=== PATIENT | female | born 1940 | race Caucasian/White ===

== ENCOUNTER 2019-09-06 10:36 | Inpatient (IN) | payer MEDICARE, OTHER ==
[~2019-09-06] VITALS: Ht 154.9 cm; Wt 43.1 kg
[~2019-09-06 10:36] MED LIST: ASPIR 8181 MG PO; CARBIDOPA-LEVO1 EACH PO
--- NOTE | 2019-09-06 11:30 | Emergency Department Note ---
History of Present Illnes History of Present Illness Chief Complaint: Respiratory History of Present Illness This is a 79 year old female arrived to the ED . With complaints of S hortness of breath or CHF exacerbation. Chief Complaint Comment PATIENT IN FROM HOME; STATES WAS SENT TO [facility] FOR DIRECT ADMISSION FOR CHF BUT THEY DID NOT HAVE ANY BEDS. [facility] DR CASTLE SENT HER HERE FOR ADMISSION. PATIENT STATES SHE HAS HAD INCREASING SHORTNESS OF BREATH FOR THE LAST 2-3 DAYS; PATIENT ALERT AND ORIENTED, RESP EVEN AND NONLABORED, APPEARS IN NO DISTRESS Historian: Patient, Family Member Arrival Mode: Car Onset (how long ago): day(s) Severity: moderate Onset quality: gradual Duration (how long): day(s) Timing of current episode: intermittent Progression: worsening Chronicity: recurrent Relieving factors: none Exacerbating factors: none Past Medical/Family History Physician Review I have reviewed the patient's past medical and family history. Any updates have been documented here. Past Medical History Recent Fever: No Clinical Suspicion of Infectio: No New/Unexplained Change in Ment: No Past Medical History: Hypertension, CHF Other Medical History: PARKINSONS RA Past Surgical History: T&A, Hip Replacement Other Surgery: TONSILLECTOMY Family History Family history of heart diseas: No Other Last Tetanus: OOD Review of Systems Review of Systems Constitutional: Reports no symptoms EENTM: Reports no symptoms Cardiovascular: Reports as per HPI, Reports chest pain, Reports edema Respiratory: Reports as per HPI, Reports dyspnea on exertion Gastrointestinal: Reports no symptoms Genitourinary: Reports no symptoms Musculoskeletal: Reports no symptoms Integumentary: Reports no symptoms Neurological: Reports no symptoms Psychological: Reports no symptoms Endocrine: Reports no symptoms Hematological/Lymphatic: Reports no symptoms Physical Exam Related Data Allergies: Coded Allergies: No Known Allergies (Unverified , 04/18/13) Triage Vital Signs Vital Signs Date Time Temp Pulse Resp B/P (MAP) Pulse Ox O2 Delivery O2 Flow Rate FiO2 09/06/19 10:46 96.5 88 24 139/76 95 Vital signs reviewed: Yes Physical Exam CONSTITUTIONAL Constitutional: Present well-developed, Present cachectic HENT HENT: Present normocephalic, Present atraumatic, Present oropharynx clear/moist, Present nose normal HENT L/R: Present left ext ear normal, Present right ext ear normal EYES Eyes: Reports PERRL, Reports conjunctivae normal NECK Neck: Present ROM normal PULMONARY Pulmonary: Present effort normal, Present breath sounds normal CARDIOVASCULAR Cardiovascular: Present regular rhythm, Present heart sounds normal, Present capillary refill normal, Present normal rate GASTROINTESTINAL Abdominal: Present soft, Present nontender, Present bowel sounds normal GENITOURINARY Genitourinary: Present exam deferred SKIN Skin: Present warm, Present dry MUSCULOSKELETAL Musculoskeletal: Present edema NEUROLOGICAL Neurological: Present alert, Present no gross motor or sensory deficits PSYCHOLOGICAL Psychological: Present mood/affect normal, Present judgement normal Results Laboratory Lab results reviewed: Yes Imaging Imaging results reviewed: Yes Assessment & Plan Medical Decision Making MDM 79-year-old female arrived to the ED for shortness of breath, patient noted bilateral pedal edema. Concerns of CHF exacerbation. Patient's BNP markedly elevated, chest x-ray concerning and tachypnea, exertion. Patient required hospital admission for IV Lasix and respiratory monitoring. Dr. Dona alex. Assessment & Plan Final Impression: (1) CHF exacerbation Depart Disposition: ADMITTED Last Vital Signs Date Time Temp Pulse Resp B/P (MAP) Pulse Ox O2 Delivery O2 Flow Rate FiO2 09/06/19 10:46 96.5 88 24 139/76 95 Home Meds Reported Medications Potassium Chloride (POTASSIUM CHLORIDE) 10 Meq Tab.er.prt, 10 MEQ PO BID, TAB 09/06/19 Carvedilol (CARVEDILOL) 3.125 Mg Tablet, 3.125 MG PO BID 09/06/19 Losartan Potassium (LOSARTAN POTASSIUM) 25 Mg Tablet, 25 MG PO DAILY 09/06/19 Potassium Bicarbonate/Cit Ac (EFFER-K 10 MEQ TABLET EFF) 10 Meq Tablet.eff, 10 MEQ PO BID 09/06/19 Citalopram Hydrobromide (CITALOPRAM HBR) 40 Mg Tablet, 40 MG PO DAILY 09/06/19 Furosemide (FUROSEMIDE) 20 Mg Tablet, 20 MG PO DAILY 09/06/19 Aspirin (ASPIR 81) 81 Mg Tablet., 81 MG PO DAILY 04/18/13 Carbidopa/Levodopa (CARBIDOPA-LEVODOPA 10-100 TAB) 1 Each Tablet, 1 TAB PO QID 04/18/13 ISHAAN MORALES, Sep 06, 2019 11:30
[2019-09-06 11:32] LABS: BASOPHILS # (AUTO) 0.1 (0.0-0.1); BASOPHILS % 1.2 % (0.0-1.0); EOSINOPHILS # (AUTO) 0.1 (0.0-0.4); EOSINOPHILS % 1.6 % (0.0-6.0); HEMATOCRIT 43.5 % (34.2-44.1); HEMOGLOBIN 13.8 g/dL (12.0-16.0); LYMPHOCYTES # (AUTO) 0.9 (1.0-3.2); LYMPHOCYTES % 21.1 % (18.0-39.1); MEAN CORPUSCULAR HEMOGLOBIN 31.1 pg (28-32); MEAN CORPUSCULAR HGB CONC 31.7 g/dL (31-35); MONOCYTES # (AUTO) 0.5 (0.2-0.8); MONOCYTES % 10.9 % (4.4-11.3); NEUTROPHILS # (AUTO) 2.8 (2.1-6.9); PLATELET COUNT 168 x10e3/uL (140-360); RED BLOOD COUNT 4.44 x10e6/uL (3.6-5.1)
[2019-09-06 11:52] LABS: ALANINE AMINOTRANSFERASE 9 IU/L (0-55); ALBUMIN 3.6 g/dL (3.5-5.0); ALBUMIN/GLOBULIN RATIO 1.3 (0.8-2.0); ALKALINE PHOSPHATASE 80 IU/L (40-150); ANION GAP 13.3 mmol/L (8-16); BLOOD UREA NITROGEN 17 mg/dL (7-26); BUN/CREATININE RATIO 20 (6-25); CALCIUM 9.4 mg/dL (8.4-10.2); CARBON DIOXIDE 29 mmol/L (22-29); CHLORIDE 105 mmol/L (98-107); CREATINE KINASE 79 IU/L (29-168); CREATININE, SERUM 0.86 mg/dL (0.57-1.11); EST GLOMERULAR FILTRATION RATE > 60 ML/MIN (60-); GLUCOSE 93 mg/dL (74-118); POTASSIUM 4.3 mmol/L (3.5-5.1); SODIUM 143 mmol/L (136-145)
--- NOTE | 2019-09-06 12:47 | Diagnostic Imaging Report ---
EXAMINATION: CHEST SINGLE (PORTABLE) INDICATION: ^Y ^CHF ^[id number] ^1130 ^Y COMPARISON: None FINDINGS: AP view TUBES and LINES: None. LUNGS: Lungs are hyperexpanded. Ill-defined bibasilar opacities, likely atelectasis. Subtle interstitial opacities. PLEURA: Probable small bilateral pleural effusions. HEART AND MEDIASTINUM: The cardiomediastinal silhouette is enlarged. BONES AND SOFT TISSUES: No acute osseous lesion. Soft tissues are unremarkable. UPPER ABDOMEN: No free air under the diaphragm. IMPRESSION: Cardiomegaly with interstitial edema and small bilateral pleural effusions. Findings consistent with decompensated heart failure. Signed by: Isiah Hernandez MD on 09/06/2019 12:43 PM
[2019-09-06] MEDS ORDERED: CARVEDILOL3.125 MG PO (13:23)
[2019-09-06] MEDS ORDERED: CITALOPRAM HBR40 MG PO (13:23)
[2019-09-06] MEDS ORDERED: FUROSEMIDE20 MG PO (13:23)
[2019-09-06] MEDS ORDERED: EFFER-K 10 MEQ10 MEQ PO (13:23)
[2019-09-06] MEDS ORDERED: LOSARTAN POTASS25 MG PO (13:23)
--- NOTE | 2019-09-06 13:40 | NUR ---
RCD PT FROM ER BY BED PT IS ALERT AND ORIENTED VITALS CHECKED PT RESTING ON BED NO DISTRESS NOTED IV PATENT BY SALINE FLUSH ADMISSION ASSESSMENT AND HISTORY DONE INSTRUCTED THE PT AND FAMILY REGARDING HOSPITAL POLICY AND VISITORS POLICY AND HOSPITAL ROUTINE BED LOW AND LOCKED CALL LIGHT IN REACH
[2019-09-06 13:55] VITALS: BP 131/78
[2019-09-06 14:59] VITALS: BP 131/78
[2019-09-06 15:07] VITALS: BP 131/78
--- NOTE | 2019-09-06 15:50 | NUR ---
PAGED DR ALLAN TO GET THE ORDER TO RENEW HOME MEDS GOT MANY ORDERS
[2019-09-06] MEDS ORDERED: POTASSIUM CHLO10 ME1 PO (15:56)
[2019-09-06] MEDS: POTASSIUM CHLORIDE 10MEQ EA PO SCH (17:00)
[2019-09-06] MEDS: CARVEDILOL 3.125 MG TAB PO SCH (17:00)
[2019-09-06] MEDS: FUROSEMIDE INJ 10 MG/ML 2 ML VIAL IV SCH (17:00)
[2019-09-06 18:12] LABS: CREATINE KINASE MB 0.6 ng/mL (0-5.0)
--- NOTE | 2019-09-06 18:56 | NUR ---
PT RESTING ON BED BED SIDE REPORT GIVEN TO ONCOMING NURSE
--- NOTE | 2019-09-06 19:20 | NUR ---
received report from day nurse. patient is resting comfortably in the bed. bed is in lowest position and call light is within reach. will continue to monitor patient.
[2019-09-06 20:00] VITALS: BP 121/62
[2019-09-06 20:53] VITALS: BP 121/62
[2019-09-07] VITALS (7 sets, daily range): BP systolic 112–149; BP diastolic 58–82
--- NOTE | 2019-09-07 00:30 | History and Physical ---
REASON FOR ADMISSION: This is an 79-year-old female, who came into the hospital with congestive heart failure. HISTORY OF PRESENTING ILLNESS: This is an 79-year-old female, who was seen in the clinic yesterday and was directed to the hospital for congestive heart failure. She also had a chest pain for the last 2 weeks and also had worsening dyspnea, heart classification before. The patient came in and was admitted to the hospital for congestive heart failure. PAST MEDICAL HISTORY: History of hypertension, history of congestive heart failure, history of rheumatoid arthritis, history of Parkinson disease, and history of depression. MEDICATIONS: She takes at home are: 1. Carbidopa-levodopa 25/100 twice a day. 2. Citalopram 40 mg once a day. 3. Potassium chloride 10 mEq two tablets once a day. 4. Carvedilol 3.125 mg twice a day. 5. Furosemide 20 mg once a day. 6. Losartan-potassium 25 mg once a day. ALLERGIES: NO KNOWN DRUG ALLERGIES. PAST SURGICAL HISTORY: History of tonsillectomy and recent history of hip arthroplasty. FAMILY HISTORY: Father with heart disease, hypertension. Mother with heart disease and hypertension too. SOCIAL HISTORY: No history of EtOH. No a history of IV drug abuse. No history of smoking either. REVIEW OF SYSTEMS: Positive for chest pain. Positive for shortness of breath. Positive for some orthopnea. No PND. No diplopia. No blurry vision. No constipation. No rectal bleeding. No hematochezia. No hematemesis either. No psychological changes noted. Depression is stable on medications. No delusional activities and no auditory hallucinations. PHYSICAL EXAMINATION: GENERAL: The patient is alert and oriented x3. VITAL SIGNS: Blood pressure is stable at 140s/80s, weight is 100, BMI 16.14. She is saturating at 97% on room air. HEENT: Normocephalic, atraumatic. The patient is cachectic with a very low BMI. CVS: S1 and S2 normal. Regular rate and rhythm. LUNGS: Decreased air entry into the lung bases. Positive for some crackles. ABDOMEN: Soft, nontender, nondistended. EXTREMITIES: No clubbing. No cyanosis. Positive for edema. MUSCULOSKELETAL: Hip tenderness still present in the right hip. Scar healing, status post right hip arthroplasty. LABORATORY VALUES: Hemoglobin 13.8, hematocrit of 34.5, and platelet count is 168. Sodium 143, potassium of 4.3. BNP was 1753. BUN and creatinine were 17 and 0.86. ASSESSMENT: The patient is an 79-year-old female with congestive heart failure. IV Lasix 20 mg twice a day will be given. Echocardiogram will be done. Troponins will be trended. Consult with Cardiology will be done. The last known echo, the patient had poor ejection fraction about 25-30%, and we will continue monitor the patient and diurese the patient adequately. Additional diagnosis includes moderate protein-energy malnutrition and major depression and Parkinson disease. The patient is on optimal medicines losartan 25 mg, is on beta-migue, carvedilol, and Lasix. If needed, Aldactone will be added depending on the tolerance of the patient and potassium levels. Further recommendation per clinical course. We will consult with Cardiology, Dr. Raygoza will be done too. FINAL DIAGNOSIS: Systolic heart failure with reduced ejection fraction. MD GISSEL Parker/QUINTONL /[id number]
[2019-09-07 06:11] LABS: BASOPHILS # (AUTO) 0.1 (0.0-0.1); BASOPHILS % 1.5 % (0.0-1.0); EOSINOPHILS # (AUTO) 0.1 (0.0-0.4); EOSINOPHILS % 3.4 % (0.0-6.0); HEMATOCRIT 41.1 % (34.2-44.1); HEMOGLOBIN 13.1 g/dL (12.0-16.0); LYMPHOCYTES # (AUTO) 1.1 (1.0-3.2); LYMPHOCYTES % 26.2 % (18.0-39.1); MEAN CORPUSCULAR HEMOGLOBIN 30.6 pg (28-32); MEAN CORPUSCULAR HGB CONC 31.9 g/dL (31-35); MONOCYTES # (AUTO) 0.4 (0.2-0.8); MONOCYTES % 10.2 % (4.4-11.3); NEUTROPHILS # (AUTO) 2.4 (2.1-6.9); NEUTROPHILS % 58.7 % (38.7-80.0); PLATELET COUNT 163 x10e3/uL (140-360); RED BLOOD COUNT 4.28 x10e6/uL (3.6-5.1); RED CELL DISTRIBUTION WIDTH 12.7 % (11.7-14.4)
[2019-09-07 06:35] LABS: CREATINE KINASE MB 1.6 ng/mL (0-5.0)
--- NOTE | 2019-09-07 06:41 | NUR ---
patient is resting comfortably in the bed. bed is in the lowest position and call light is within reach.
[2019-09-07] MEDS: CARBIDOPA/LEVODOPA 10/100 TAB PO SCH ×6 (07:30→20:57)
[2019-09-07] MEDS: ASPIRIN 81 MG CHEW TAB PO SCH (07:30)
[2019-09-07] MEDS: FUROSEMIDE INJ 10 MG/ML 2 ML VIAL IV SCH ×2 (07:30→17:04)
[2019-09-07 07:34] LABS: ALANINE AMINOTRANSFERASE 11 IU/L (0-55); ALBUMIN 3.3 g/dL (3.5-5.0); ALBUMIN/GLOBULIN RATIO 1.3 (0.8-2.0); ALKALINE PHOSPHATASE 64 IU/L (40-150); ANION GAP 12.8 mmol/L (8-16); BLOOD UREA NITROGEN 16 mg/dL (7-26); BUN/CREATININE RATIO 21 (6-25); CALCIUM 8.4 mg/dL (8.4-10.2); CARBON DIOXIDE 25 mmol/L (22-29); CHLORIDE 107 mmol/L (98-107); CREATININE, SERUM 0.78 mg/dL (0.57-1.11); EST GLOMERULAR FILTRATION RATE > 60 ML/MIN (60-); GLUCOSE 93 mg/dL (74-118); POTASSIUM 3.8 mmol/L (3.5-5.1); SODIUM 141 mmol/L (136-145)
[2019-09-07] MEDS: CARVEDILOL 3.125 MG TAB PO SCH ×2 (08:02→17:08)
[2019-09-07] MEDS: LOSARTAN POTASSIUM 25 MG TAB PO SCH (08:03)
[2019-09-07] MEDS: POTASSIUM CHLORIDE 10MEQ EA PO SCH ×2 (08:03→17:08)
--- NOTE | 2019-09-07 10:36 | Progress Note ---
DATE: SUBJECTIVE: An 79-year-old female, who came in with congestive heart failure. The patient is currently on IV diuresis. The patient also has history of Parkinson's disease and complains of generalized weakness, complains of anxiety and almost panic attacks. The patient's current medications aspirin, carvedilol, furosemide, losartan, and potassium chloride. No chest pain currently, but shortness of breath, just on minimal exertion. OBJECTIVE: VITAL SIGNS: Temperature is 97.5, T-max of 98.1, pulse of 86, respirations of 20, blood pressure is 149/81, pulse oximeter 94%. HEENT: Normocephalic and atraumatic. The patient is very cachectic. CVS: S1 and S2. Regular. ABDOMEN: Soft, nontender, and nondistended. LUNGS: Positive for crackles in the lung bases. EXTREMITIES: No clubbing, no cyanosis. Positive for edema. IMAGING STUDIES: Chest x-ray shows cardiomegaly with interstitial edema. Small bilateral pleural effusion, consistent with decompensated heart failure. LABORATORY VALUES: White count is 4.12. No left shift. Chemistries are pending today. Yesterday shows sodium 143, potassium 4.3, BUN of 20 and creatinine of . Troponins have been trended to be negative. BNP was 1753.1. ASSESSMENT: Ms. Genevieve Briscoewith acute congestive heart failure with reduced ejection fraction. PLAN: 1. Continue with diuresis. Echo is pending. The patient is currently on PETER inhibitors, beta-blockade, and aspirin. We will continue the same. Changes in medication will depend on echocardiogram, can start Entresto or Aldactone depending on Cardiology's recommendation. 2. Hypertension. Continue with antihypertensive. 3. Volume overload. Continue with IV Lasix 20 mg twice a day. 4. Anxiety. We will start on some anxiolytics, very small doses of buspirone 5 mg twice a day. 5. Moderate protein-energy malnutrition. We will consult Nutrition for it. Strict I's and O's, and low-salt diet and daily weights will be monitored. Further recommendation per clinical course, everything depending on echocardiogram that will be done today. MD GISSEL Parker/QUINTONL /[id number]
--- NOTE | 2019-09-07 11:55 | NUR ---
Handoff report to nurse BARBI Alegre patient in bed with daughter at bedside,
--- NOTE | 2019-09-07 14:07 | Consultation ---
DATE OF CONSULTATION: 09/07/2019 Cardiac Consultation HISTORY OF PRESENT ILLNESS: Very delightful 79-year-old lady, who was seen by Dr. Franco in his office. She is admitted with exacerbation of her congestive heart failure. The patient was seen and evaluated in the past in April of this year where she had right hip fracture. At that time, she was at [facility] where she had successful hip replacement. Her echocardiogram at that time showed left ventricular dysfunction and patient discharged on appropriate medication. However, the patient has for the last 2-3 weeks having progressive worsening shortness of breath, leg swelling, unable to do activity, cough, and she was quite ill and she moved to class 4 heart failure from her usual class 3 heart failure. She does have cough, leg swelling, orthopnea and PND. She was admitted, started on IV diuretics and other medication and she is better today. REVIEW OF SYSTEMS: Extensive review of systems will be summarized for clarity. GENERAL: No fever, no chills. No cold sweats. HEENT: No hearing and no vision problem. PULMONARY: Cough as per acute illness. GI: Poor appetite. No hematemesis. No melena. : No hematuria. No dysuria. The patient able to control her urine. MUSCULOSKELETAL: She had nice recovery from her hip and she is able to ambulate. HEMATOLOGY: No easy bruising or bleeding. ENDOCRINE: No cold, no heat intolerance. No diabetes symptoms. SOCIAL HISTORY: She is single. She never got . She is a retired banker. She is nonsmoker and non-alcohol drinker. PAST MEDICAL HISTORY: 1. Hypertension. 2. Congestive heart failure. 3. History of rheumatoid arthritis. 4. Parkinsonism. 5. Tonsillectomy. 6. Right hip surgery in April 2019. MEDICATIONS: Sinemet 25/100 one tablet twice a day, citalopram 40 mg a day, carvedilol 3.125 mg twice a day, losartan 25 mg a day, Lasix 20 mg a day, potassium chloride 10 mEq a day. ALLERGIES: NONE. FAMILY HISTORY: Father of heart disease and hypertension. Mother had heart disease and hypertension, but both of them at old age. Her sister and brother are in relatively good health. PHYSICAL EXAMINATION: GENERAL: Very thin, delightful lady in no acute distress. VITAL SIGNS: Height of 5 feet 1 inch, weight of only 95 pounds. Blood pressure 130/70, heart rate 80, respiratory rate of 18. HEENT: Pupils are reactive. NECK: No elevation of jugular venous pulsation. CHEST: Decreased lung expansion. Few crackles. HEART: PMI 5th left intercostal space. Normal first and second heart sound. Ejection systolic murmur. ABDOMEN: Soft with good bowel sounds. EXTREMITIES: Right hip skin wound is nicely healed. No peripheral edema. NEUROLOGIC: Awake, alert, oriented. LABORATORY DATA: Sodium of 141, potassium 3.8, BUN 16, creatinine of 0.8, glucose of 93. White blood cell count of 4.1, hemoglobin 13.1, hematocrit 41%, and platelet count of 163,000 TSH of 1.9. BNP on admission 1753. Chest x-ray showing volume overload and pleural effusion. IMPRESSION AND PLAN: 1. Acute on chronic systolic heart failure. 2. Parkinson. 3. Debility. 4. Very petite, very small size. 5. History of rheumatoid arthritis. 6. Recent right hip replacement. Cardiac drake, I would concur with current medical therapy consisting of losartan 25 mg a day, Coreg 3.125 mg twice a day, aspirin, and Lasix. Precaution will be done because of her borderline blood pressure. We will see if we can increase her Coreg dose if visible. We will repeat her labs and we will follow her progression with you. Case discussed with the patient and her sister at bedside. Questions are answered. MD ROCIO Florence/QUINTONL /[id number]
--- NOTE | 2019-09-07 19:05 | NUR ---
WALKING ROUNDS PERFORMED, RECEIVED PT LAYING FOWLERS IN BED, AAOX3, RR EVEN AND NON-LABORED, ON ROOM AIR. NO S/SX OF DISTRESS NOTED. LEFT PT LAYING FOWLERS IN BED, BED IN LOW LOCKED POSITION, SIDE RAILS UPX2, CALL LIGHT AND PHONE WITHIN REACH. BED ALARM ACTIVATED ZONE 1.
[2019-09-08] VITALS (8 sets, daily range): BP systolic 103–128; BP diastolic 44–95
[2019-09-08] MEDS: CARBIDOPA/LEVODOPA 10/100 TAB PO SCH ×4 (04:54→21:50)
[2019-09-08 05:12] LABS: BASOPHILS # (AUTO) 0.1 (0.0-0.1); BASOPHILS % 1.6 % (0.0-1.0); EOSINOPHILS # (AUTO) 0.2 (0.0-0.4); EOSINOPHILS % 4.7 % (0.0-6.0); HEMATOCRIT 42.5 % (34.2-44.1); HEMOGLOBIN 13.9 g/dL (12.0-16.0); LYMPHOCYTES # (AUTO) 1.3 (1.0-3.2); LYMPHOCYTES % 29.2 % (18.0-39.1); MEAN CORPUSCULAR HEMOGLOBIN 31.8 pg (28-32); MEAN CORPUSCULAR HGB CONC 32.7 g/dL (31-35); MEAN CORPUSCULAR VOLUME 97.3 fL (81-99); MONOCYTES # (AUTO) 0.5 (0.2-0.8); MONOCYTES % 11.5 % (4.4-11.3); NEUTROPHILS # (AUTO) 2.4 (2.1-6.9); NEUTROPHILS % 52.8 % (38.7-80.0); PLATELET COUNT 164 x10e3/uL (140-360); RED BLOOD COUNT 4.37 x10e6/uL (3.6-5.1); RED CELL DISTRIBUTION WIDTH 12.7 % (11.7-14.4)
[2019-09-08 05:52] LABS: ALANINE AMINOTRANSFERASE 11 IU/L (0-55); ALBUMIN 3.2 g/dL (3.5-5.0); ALBUMIN/GLOBULIN RATIO 1.2 (0.8-2.0); ALKALINE PHOSPHATASE 64 IU/L (40-150); ANION GAP 12.7 mmol/L (8-16); BLOOD UREA NITROGEN 21 mg/dL (7-26); BUN/CREATININE RATIO 27 (6-25); CARBON DIOXIDE 28 mmol/L (22-29); CHLORIDE 106 mmol/L (98-107); CHOLESTEROL 139 MD/DL (0-199); CREATININE, SERUM 0.78 mg/dL (0.57-1.11); EST GLOMERULAR FILTRATION RATE > 60 ML/MIN (60-); GLUCOSE 95 mg/dL (74-118); POTASSIUM 3.7 mmol/L (3.5-5.1); SODIUM 143 mmol/L (136-145); TRIGLYCERIDES 68 MG/DL (0-149)
--- NOTE | 2019-09-08 07:10 | NUR ---
RCD PT AT BED PT IS ALERT AND ORIENTED PT RESTING ON BED IV PATENT BY SALINE FLUSH BED LOW AND LOCKED CALL LIGHT IN REACH
[2019-09-08] MEDS: CARVEDILOL 3.125 MG TAB PO SCH ×2 (08:00→16:51)
--- NOTE | 2019-09-08 08:09 | Progress Note ---
DATE: SUBJECTIVE: This is an 79-year-old female with a history of acute congestive heart failure. The patient came in with shortness of breath, with documented low ejection fraction and also with volume overload with pleural effusion. The patient is feeling better today with Lasix. Medicines included PETER inhibitors and beta-blockers have been continued. The patient is feeling better. No chest pain. No shortness of breath report at this time. OBJECTIVE: VITAL SIGNS: Temperature is 98.1, pulse of 72, respirations of 18, and blood pressure is 128/58. HEENT: Normocephalic and atraumatic. The patient is cachectic. CVS: S1 and S2, regular. ABDOMEN: Soft, nontender, and nondistended. LUNGS: Positive for some crackles in lower bases, but improvement. EXTREMITIES: No clubbing. No cyanosis. Edema has improved markedly. MEDICATIONS: The patient is on Carbidopa and levodopa, potassium chloride 10 mEq b.i.d., carvedilol 3.125 twice a day, Lasix 20 mg twice a day and losartan 25 mg daily with aspirin 81 mg daily. LABORATORY VALUES: White count is 4.45, hemoglobin is 13.9, and hematocrit 42.5. Chemistry shows sodium 137, potassium 3.7, BUN of 21, and creatinine 0.78. Lipids are pending. TSH is 1.947. ASSESSMENT: Ms. Genevieve Briscoe with. 1. [id number] congestive heart failure with reduced ejection fraction pending echocardiogram. 2. Parkinson's disease. 3. Depression. 4. Cachexia with story with moderate protein-energy malnutrition. 5. History of rheumatoid arthritis. PLAN: The patient is on a good regimen at this time is Coreg and aspirin. Plan today would be physical therapy to rehabilitate the patient and see discharge planning depending on therapy. We will continue to monitor the patient and progression is noted. Discharge will be planned for tomorrow depending on PT evaluation. MD GISSEL Parker/MODL /[id number]
[2019-09-08] MEDS: LOSARTAN POTASSIUM 25 MG TAB PO SCH (09:00)
[2019-09-08] MEDS: ASPIRIN 81 MG CHEW TAB PO SCH (09:00)
[2019-09-08] MEDS: FUROSEMIDE INJ 10 MG/ML 2 ML VIAL IV SCH ×2 (09:00→16:51)
[2019-09-08] MEDS: POTASSIUM CHLORIDE 10MEQ EA PO SCH ×2 (09:00→16:52)
--- NOTE | 2019-09-08 10:00 | NUR ---
IMM letter delivered and explained to pt. She verbalized understanding. Signed copy placed in chart. Copy to pt.
[2019-09-08 14:49] LABS: HDL CHOLESTEROL 46 MG/DL (40-60); LDL CHOLESTEROL 79 MG/DL (60-130)
[2019-09-08] MEDS ORDERED: ALBUTEROL SULF 0.083% NEB SOLN 3 ML NEB NEB STA (14:59)
--- NOTE | 2019-09-08 15:00 | NUR ---
PT C/O BREATHING DIFFICULTY AFTER PT O2 SATURATION 98%AT ROOM AIR PAGED AND NOTIFIED DR ALLAN GOT NEW ORDERS
--- NOTE | 2019-09-08 15:15 | NUR ---
Received order for home health. Spoke to pt at bedside. Pt states she doesn't remember the name of the HH company that she used previously and to use any company. Choice letter signed for [facility] and [facility]. Copy given to pt with contact information. Informed pt that referral will be sent to [facility]. CM asked that pt contact company if she does not hear from them within 24 hrs of discharge. Pt verbalized understanding. Signed choice letter placed in front of chart. Referral was faxed to [facility] at [phone] / . Miguelina Choi with [employer] was informed of referral and notified of anticipated dc for tomorrow.
--- NOTE | 2019-09-08 16:00 | NUR ---
Per Miguelina with [facility], they will accept pt. .
--- NOTE | 2019-09-08 17:48 | NUR ---
Nutrition Intervention Note RD Recommendation(s) for Physician: -Recommend liberalizing diet to low sodium diet -Fluid restriction per MD -Ensure Compact with meals for added nutrition The patient meets criteria for unspecified SEVERE protein-calorie malnutrition. Plan of Care: RD following, monitoring for tolerance and adequacy, oral supplement recommendation Nutrition reason for involvement: Diagnosis - CHF RD Assessment (09/08/19) Pt is an 79 year old female admitted with CHF exacerbation. Pt reports she has been eating 50% of her meals which is typical for her. No weight loss reported and pt stated she usually weighs 100-103 lbs; however, pt currently has a weight of 95 lbs in chart. No N/V/D/C or chewing/swallowing issues. Pt was drinking nutrition supplements prior to admission. Recommend Ensure Compact with meals at this time due to fluid restriction. Will continue to monitor. Principal Problems/Diagnoses: CHF PMH: HTN, CHF, rheumatoid arthritis, Parkinson, depression GI: soft, non-tender round abdomen, last recorded BM 09/06 Skin: intact Labs: (09/08/19) Na 143, K 3.7, BUN 21, Cr 0.78. Glu 95 Meds: Sinemet, KCl, losartan, lasix Ht: 66 inches (per pt) Wt: 95 lbs BMI: 15.3 kg/m2 IBW:130 lbs Malnutrition Evaluation (09/08/19) The patient meets criteria for unspecified SEVERE protein-calorie malnutrition. Energy intake: <75% of estimated energy requirements for >1 month Weight loss: No weight loss reported by pt Fat loss: moderate/severe generalized Muscle loss: moderate/severe generalized Supporting Evidence: Fluid accumulation: unable to evaluate Functional Status: unable to evaluate Nutrition Prescription (Diet Order): cardiac diet Estimated Nutritional Needs: 0940-9082 calories/day (30-35 kcal/kg CBW) 65-86 g protein/day (1.5-2 g pro/kg CBW Diet Adequacy: Not meeting calorie needs, Not meeting protein needs Tolerance: Tolerating PO Diet Education Needs Assessment: Pt declined the need for diet education Nutrition Care Level: moderate Nutrition Diagnosis: Severe malnutrition related to chronic illness as evidenced by pt meeting <75% of estimated energy needs for > 1 month and moderate/severe generalized muscle and fat depletion. Goal: Patient will meet 75-100% of estimated needs by follow up Progress: N/A Interventions: -mineral and fluid modified diet, Commercial beverage, Recommended Modifications Monitoring/Evaluation: -Total energy intake, Total protein intake, Modified diet, Liquid supplement, Weight change Signed: Angela Miller RD, LD
--- NOTE | 2019-09-08 18:38 | NUR ---
PT RESTING ON BED BED SIDE REPORT GIVEN TO ONCOMING NURSE
--- NOTE | 2019-09-08 19:25 | NUR ---
RECEIVED REPORT FROM 7AM NURSE.
--- NOTE | 2019-09-09 | NUR ---
PATIENT CONTINUE RESTING, NO DISTRESS NOTED. CALL LIGHT REMAIN IN REACH.
[2019-09-09 01:04] VITALS: BP 103/56
--- NOTE | 2019-09-09 04:05 | NUR ---
RESTING COMFORTABLY WATCHING TV, NO DISTRESS NOTED, NO COMPLAINTS OF PAIN. WILL CONTINUE TO MONITOR.
[2019-09-09 05:24] VITALS: BP 137/59
[2019-09-09 05:55] LABS: ANION GAP 13.8 mmol/L (8-16); BLOOD UREA NITROGEN 22 mg/dL (7-26); BUN/CREATININE RATIO 29 (6-25); CARBON DIOXIDE 27 mmol/L (22-29); CHLORIDE 107 mmol/L (98-107); CREATININE, SERUM 0.75 mg/dL (0.57-1.11); EST GLOMERULAR FILTRATION RATE > 60 ML/MIN (60-); GLUCOSE 91 mg/dL (74-118); POTASSIUM 3.8 mmol/L (3.5-5.1); SODIUM 144 mmol/L (136-145)
--- NOTE | 2019-09-09 07:00 | NUR ---
Received bedside shift report from off going night nurse. Patient in stable condition, no s/s of distress noted. No pain voiced. Telemetry applied. Bed in lowest position and locked. Call light within reach.
--- NOTE | 2019-09-09 07:05 | NUR ---
DR. ALLAN VISITED, REPORT GIVEN TO AM NURSE. PATIENT CONTINUE RESTING, NO DISTRESS NOTED. REMAIN ON TELEMETRY. CALL LIGHT REMAIN IN REACH.
[2019-09-09 08:16] VITALS: BP 129/73
[2019-09-09] MEDS: CARBIDOPA/LEVODOPA 10/100 TAB PO SCH ×2 (08:50→12:35)
[2019-09-09] MEDS: POTASSIUM CHLORIDE 10MEQ EA PO SCH (08:51)
[2019-09-09] MEDS: ASPIRIN 81 MG CHEW TAB PO SCH (08:51)
[2019-09-09] MEDS: LOSARTAN POTASSIUM 25 MG TAB PO SCH (08:51)
[2019-09-09] MEDS: FUROSEMIDE INJ 10 MG/ML 2 ML VIAL IV SCH (08:53)
[2019-09-09] MEDS: CARVEDILOL 3.125 MG TAB PO SCH (08:53)
[2019-09-09 08:56] VITALS: BP 129/73
--- NOTE | 2019-09-09 09:16 | Progress Note ---
DATE: SUBJECTIVE: The patient is an 79-year-old female, who came with congestive heart failure. No chest pain at this time. Shortness of breath is better. The patient did ambulate with difficulty and walking because of shortness of breath. Also complains of some anxiety. The patient iscurrently on carbidopa levodopa, carvedilol, citalopram, furosemide, and potassium chloride. Laboratory valuesfrom yesterday, white count is 4.45 normal. Chemistries today, sodium of 144, potassium 3.8, BUN of 22, creatinine 0.75, and BNP done yesterday was 1899. ASSESSMENT: Ms. Genevieve Briscoe with: 1. Acute on chronic congestive heart failure with reduced ejection fraction, EF of 25 to 35%. The patient continues to be diuresed, I's and O's, positive balance today. Continue diuresis. Physical therapy to walk the patient, O2 evaluation and home O2 evaluation will be done. Home health will be needed and we will continue to monitor the patient along with Cardiology. MD GISSEL Parker/QUINTONL /[id number]
--- NOTE | 2019-09-09 10:45 | NUR ---
Pt. expressed no spiritual or emotional concerns at this time. Pt's sister at bedside. Student Success Advisor provided hospitality and instructions on how to contact a parts identifier if needed. No need to follow at this time. BÁRBARA KRAFT Student Success Advisor Spiritual Care Department O: [phone]
[2019-09-09 12:04] VITALS: BP 115/59
--- NOTE | 2019-09-09 15:16 | NUR ---
Notified Miguelina with [facility] that pt is discharging today.
[2019-09-09 16:07] VITALS: BP 129/62
--- NOTE | 2019-09-09 16:53 | NUR ---
PATIENT DISCHARGED HOME WITH HOME HEALTH. PATIENT OFF THE UNIT @ 1524 VIA WHEELCHAIR ACCOMPANIED BY PCT TO THE LOBBY. PATIENT IN STABLE CONDITION, NO S/S OF DISTRESS NOTED. NO PAIN VOICED. IV ACCESS REMOVED WITH TIP INTACT. ALL PERSONAL ITEMS TAKEN WITH THE PATIENT. DISCHARGE TEACHING AND INSTRUCTION GIVEN TO THE PATIENT. PATIENT VERBALIZED UNDERSTANDING. DISCHARGE PAPERWORK GIVEN TO THE PATIENT.
== END 2019-09-09 15:25 | disposition home health service (06) | DRG 291 ==
LOC: ER 10:36 → ERHOLD 11:06 → MED/SURG2 14:20
PROVIDERS: ADMIT Family Medicine; ATTEND Family Medicine
DX: I11.0 Hypertensive heart disease with heart failure (principal); E43 Unspecified severe protein-calorie malnutrition; Z68.1 Body mass index [BMI] 19.9 or less, adult; I50.23 Acute on chronic systolic (congestive) heart failure; G20 Parkinson's disease; M06.9 Rheumatoid arthritis, unspecified; Z82.49 Family history of ischemic heart disease and other diseases of the circulatory system; F32.9 Major depressive disorder, single episode, unspecified; R53.81 Other malaise; Z96.641 Presence of right artificial hip joint; F41.9 Anxiety disorder, unspecified
CPT/HCPCS: 36415; 71045; 80048; 80053; 80061; 82550; 82553; 83880; 84443; 84484; 85025; 87635; 93005; 93306; 94640; 97139; 99284; J1940

== ENCOUNTER 2020-12-25 16:01 | Inpatient (IN) | payer MEDICARE, OTHER ==
[~2020-12-25] VITALS: Ht 167.6 cm; Wt 46.3 kg
[~2020-12-25 16:01] MED LIST changes: +CARVEDILOL3.125 MG PO; +CITALOPRAM HBR40 MG PO; +EFFER-K 10 MEQ10 MEQ PO; +FUROSEMIDE20 MG PO; +LOSARTAN POTASS25 MG PO; +POTASSIUM CHLO10 ME1 PO
[2020-12-25] MEDS ORDERED: FENTANYL CITRATE/PF 100MCG/2 ML INJ IJ STA (16:49)
[2020-12-25 18:24] LABS: BASOPHILS # (AUTO) 0.1 (0.0-0.1); BASOPHILS % 0.9 % (0.0-1.0); EOSINOPHILS # (AUTO) 0.1 (0.0-0.4); EOSINOPHILS % 1.4 % (0.0-6.0); HEMATOCRIT 39.4 % (34.2-44.1); HEMOGLOBIN 12.8 g/dL (12.0-16.0); LYMPHOCYTES # (AUTO) 0.6 (1.0-3.2); LYMPHOCYTES % 9.1 % (18.0-39.1); MEAN CORPUSCULAR HEMOGLOBIN 31.5 pg (28-32); MEAN CORPUSCULAR HGB CONC 32.5 g/dL (31-35); MONOCYTES # (AUTO) 0.4 (0.2-0.8); MONOCYTES % 6.3 % (4.4-11.3); NEUTROPHILS # (AUTO) 5.4 (2.1-6.9); NEUTROPHILS % 81.8 % (38.7-80.0); PLATELET COUNT 158 x10e3/uL (140-360); RED BLOOD COUNT 4.06 x10e6/uL (3.6-5.1)
[2020-12-25 18:34] LABS: INR 1.06; PARTIAL THROMBOPLASTIN TIME 25.2 seconds (23.8-35.5); PROTHROMBIN TIME 14.2 seconds (11.9-14.5)
[2020-12-25 18:45] LABS: ALBUMIN 3.4 g/dL (3.5-5.0); ALBUMIN/GLOBULIN RATIO 1.5 (0.8-2.0); ANION GAP 12.7 mmol/L (8-16); CALCIUM 8.3 mg/dL (8.4-10.2); CREATININE, SERUM 1.02 mg/dL (0.57-1.11); POTASSIUM 3.7 mmol/L (3.5-5.1)
[2020-12-25] MEDS ORDERED: ASPIRIN 81 MG CHEW TAB PO ONE (20:00)
[2020-12-25] MEDS ORDERED: MORPHINE SULFATE INJ 4 MG/ML INJ 1ML IV PRN (20:00)
[2020-12-25 20:21] LABS: BAND NEUTROPHILS % (MANUAL) 2 %; LYMPHOCYTES % (MANUAL) 9 % (19-48); MONOCYTES % (MANUAL) 1 % (3.4-9.0); NEUTROPHILS % (MANUAL) 88 % (40-74)
[2020-12-25 20:22] LABS: PLATELET ESTIMATE ADEQUATE; PLATELET MORPHOLOGY COMMENT NORMAL; RBC MORPHOLOGY COMMENT NORMAL
[2020-12-25 20:51] LABS: CLARITY,URINE CLEAR (CLEAR); COLOR,URINE YELLOW (YELLOW)
[2020-12-25 20:52] LABS: LEUKOCYTE ESTERASE ,URINE SMALL (NEGATIVE); NITRITE,URINE NEGATIVE (NEGATIVE)
[2020-12-25 20:53] LABS: KETONES,URINE NEGATIVE (NEGATIVE); PROTEIN,URINE DIPSTICK NEGATIVE (NEGATIVE); URINE UROBILINOGEN 0.2 mg/dL (0.2 - 1)
[2020-12-25 21:01] LABS: BACTERIA,URINE FEW /HPF; EPITHELIAL CELLS,URINE FEW /LPF; WBC,URINE (MAN) 0-5 /HPF (0-5)
[2020-12-25 21:45] VITALS: BP 124/62
[2020-12-25 22:00] VITALS: BP 124/62
[2020-12-25] MEDS: SODIUM CHLORIDE 0.9% 1000ML 1,000 ML IV SCH (22:04)
[2020-12-25] MEDS: ONDANSETRON HCL INJ 2MG/ML 2ML 2 MG/ML VIAL IV PRN (22:05)
[2020-12-26] VITALS (7 sets, daily range): BP systolic 95–142; BP diastolic 55–74
[2020-12-26 04:20] LABS: BASOPHILS % 0.6 % (0.0-1.0); EOSINOPHILS % 0.6 % (0.0-6.0); HEMATOCRIT 40.3 % (34.2-44.1); HEMOGLOBIN 12.7 g/dL (12.0-16.0); LYMPHOCYTES # (AUTO) 0.7 (1.0-3.2); LYMPHOCYTES % 10.3 % (18.0-39.1); MEAN CORPUSCULAR HEMOGLOBIN 31.8 pg (28-32); MEAN CORPUSCULAR HGB CONC 31.5 g/dL (31-35); MEAN CORPUSCULAR VOLUME 100.8 fL (81-99); MONOCYTES # (AUTO) 0.7 (0.2-0.8); MONOCYTES % 9.5 % (4.4-11.3); NEUTROPHILS # (AUTO) 5.4 (2.1-6.9); NEUTROPHILS % 78.9 % (38.7-80.0); PLATELET COUNT 148 x10e3/uL (140-360); RED CELL DISTRIBUTION WIDTH 13.1 % (11.7-14.4)
[2020-12-26 04:40] LABS: ALBUMIN 3.4 g/dL (3.5-5.0); ALBUMIN/GLOBULIN RATIO 1.4 (0.8-2.0); ALKALINE PHOSPHATASE 59 IU/L (40-150); ANION GAP 14.7 mmol/L (8-16); BLOOD UREA NITROGEN 20 mg/dL (7-26); BUN/CREATININE RATIO 21 (6-25); CALCIUM 8.5 mg/dL (8.4-10.2); CARBON DIOXIDE 27 mmol/L (22-29); CHLORIDE 105 mmol/L (98-107); CREATININE, SERUM 0.94 mg/dL (0.57-1.11); EST GLOMERULAR FILTRATION RATE 57 ML/MIN (60-); GLUCOSE 108 mg/dL (74-118); POTASSIUM 3.7 mmol/L (3.5-5.1); SODIUM 143 mmol/L (136-145)
[2020-12-26 04:42] LABS: ALANINE AMINOTRANSFERASE < 6 IU/L (0-55)
[2020-12-26 05:00] LABS: CREATINE KINASE MB 1.7 ng/mL (0-5.0)
[2020-12-26 06:30] LABS: INR 1.04
[2020-12-26 06:31] LABS: PARTIAL THROMBOPLASTIN TIME 27.9 seconds (23.8-35.5)
[2020-12-26] MEDS ORDERED: TRANEXAMIC ACID 1,000 MG/10 ML ML ONE (06:40)
[2020-12-26] MEDS ORDERED: Vancomycin IV 500 MG ONE (06:40)
[2020-12-26] MEDS ORDERED: Vancomycin IV 1 GM VIAL ONE (06:40)
[2020-12-26] MEDS ORDERED: ROPIVACAINE 246.25 MG, EPINEPHRINE HCL 1:1000 1ML 0.5 MG, CLONIDINE HCL 0.08 MG, KETORO... INJ ONE ×5 (10:30)
[2020-12-26] MEDS: ACETAMINOPHEN 1000 MG/100 ML IV SCH ×3 (12:00→23:58)
[2020-12-26 14:01] LABS: CREATINE KINASE MB 2.3 ng/mL (0-5.0)
[2020-12-26] MEDS ORDERED: SINEMET 25-1001 EACH PO (15:26)
[2020-12-26] MEDS ORDERED: LEXAPRO10 MG PO (15:31)
[2020-12-26] MEDS ORDERED: SPIRONOLACTONE25 MG PO (15:37)
[2020-12-26] MEDS: SODIUM CHLORIDE 0.9% 1000ML 1,000 ML IV SCH (16:39)
[2020-12-26] MEDS: ENOXAPARIN SOD INJ 40 MG/0.4 ML SYR SC SCH (16:40)
[2020-12-26] MEDS: Cefazolin 2 GM in SODIUM CHLORIDE 0.9% 50ML 50 ML IV SCH (18:00)
[2020-12-27] VITALS (8 sets, daily range): BP systolic 105–118; BP diastolic 51–69
[2020-12-27] MEDS: Cefazolin 2 GM in SODIUM CHLORIDE 0.9% 50ML 50 ML IV SCH ×2 (01:54→10:39)
[2020-12-27] MEDS: ACETAMINOPHEN 1000 MG/100 ML IV SCH (04:24)
[2020-12-27 05:01] LABS: BASOPHILS % 0.2 % (0.0-1.0); EOSINOPHILS # (AUTO) 0.1 (0.0-0.4); EOSINOPHILS % 0.5 % (0.0-6.0); HEMATOCRIT 37.9 % (34.2-44.1); HEMOGLOBIN 12.3 g/dL (12.0-16.0); LYMPHOCYTES # (AUTO) 0.8 (1.0-3.2); LYMPHOCYTES % 8.2 % (18.0-39.1); MEAN CORPUSCULAR HEMOGLOBIN 31.9 pg (28-32); MEAN CORPUSCULAR HGB CONC 32.5 g/dL (31-35); MEAN CORPUSCULAR VOLUME 98.4 fL (81-99); MONOCYTES # (AUTO) 0.7 (0.2-0.8); NEUTROPHILS # (AUTO) 7.7 (2.1-6.9); NEUTROPHILS % 82.7 % (38.7-80.0); PLATELET COUNT 127 x10e3/uL (140-360); RED BLOOD COUNT 3.85 x10e6/uL (3.6-5.1); RED CELL DISTRIBUTION WIDTH 13.2 % (11.7-14.4)
[2020-12-27 05:29] LABS: ALBUMIN 2.9 g/dL (3.5-5.0); ALBUMIN/GLOBULIN RATIO 1.3 (0.8-2.0); ANION GAP 12.8 mmol/L (8-16); CALCIUM 8.4 mg/dL (8.4-10.2); CREATININE, SERUM 1.17 mg/dL (0.57-1.11); POTASSIUM 3.8 mmol/L (3.5-5.1)
[2020-12-27] MEDS ORDERED: ACETAMINOPHEN 1000 MG/100 ML IV PRN (11:30)
[2020-12-27] MEDS: SODIUM CHLORIDE 0.9% 1000ML 1,000 ML IV SCH (13:19)
[2020-12-27] MEDS: ENOXAPARIN SOD INJ 40 MG/0.4 ML SYR SC SCH (16:23)
[2020-12-28] VITALS: BP 139/69
[2020-12-28 04:00] VITALS: BP 138/84
[2020-12-28 05:47] LABS: HEMATOCRIT 40.1 % (34.2-44.1); MEAN CORPUSCULAR HEMOGLOBIN 31.8 pg (28-32); MEAN CORPUSCULAR HGB CONC 32.4 g/dL (31-35); PLATELET COUNT 126 x10e3/uL (140-360); RED BLOOD COUNT 4.09 x10e6/uL (3.6-5.1); RED CELL DISTRIBUTION WIDTH 13.2 % (11.7-14.4)
[2020-12-28] MEDS ORDERED: CARVEDILOL 3.125 MG TAB PO SCH (06:00)
[2020-12-28 06:23] LABS: ALBUMIN 2.9 g/dL (3.5-5.0); CALCIUM 8.8 mg/dL (8.4-10.2); CREATININE, SERUM 0.81 mg/dL (0.57-1.11)
[2020-12-28 07:43] VITALS: BP 150/75
[2020-12-28 08:43] LABS: EOSINOPHILS % (MANUAL) 1 % (0-7); LYMPHOCYTES % (MANUAL) 14 % (19-48); NEUTROPHILS % (MANUAL) 82 % (40-74)
[2020-12-28 08:44] LABS: PLATELET ESTIMATE SLIGHTLY DECREASED; PLATELET MORPHOLOGY COMMENT NORMAL; RBC MORPHOLOGY COMMENT NORMAL
[2020-12-28 08:49] VITALS: BP 150/75
[2020-12-28] MEDS: ONDANSETRON HCL INJ 2MG/ML 2ML 2 MG/ML VIAL IV PRN (08:57)
[2020-12-28] MEDS ORDERED: APIXAB 2.5 MG TABLET PO SCH (09:00)
[2020-12-28 11:45] VITALS: BP 122/59
== END 2020-12-28 12:25 | DRG 522 ==
LOC: ER 16:19 → ERHOLD 19:50 → MED/SURG 21:43
PROVIDERS: ADMIT Family Medicine; ATTEND Family Medicine
PROC: 0SRS0J9 Replacement of Left Hip Joint, Femoral Surface with Synthetic Substitute, Cemented, Open Approach (ICD-10-PCS; principal; 2020-12-26 07:00)
DX: S72.002A Fracture of unspecified part of neck of left femur, initial encounter for closed fracture (principal); E44.0 Moderate protein-calorie malnutrition; I50.22 Chronic systolic (congestive) heart failure; Z68.1 Body mass index [BMI] 19.9 or less, adult; I48.0 Paroxysmal atrial fibrillation; Z96.641 Presence of right artificial hip joint; I11.0 Hypertensive heart disease with heart failure; G20 Parkinson's disease; W01.0XXA Fall on same level from slipping, tripping and stumbling without subsequent striking against object, initial encounter; M06.9 Rheumatoid arthritis, unspecified; F02.80 Dementia in other diseases classified elsewhere, unspecified severity, without behavioral disturbance, psychotic disturbance, mood disturbance, and anxiety; Z09 Encounter for follow-up examination after completed treatment for conditions other than malignant neoplasm; Z86.73 Personal history of transient ischemic attack (TIA), and cerebral infarction without residual deficits; Z82.49 Family history of ischemic heart disease and other diseases of the circulatory system; Z20.822 Contact with and (suspected) exposure to COVID-19
CPT/HCPCS: 36415; 70450; 71045; 72125; 72170; 80053; 81001; 82550; 82553; 84484; 85007; 85025; 85027; 85610; 85730; 86850; 86900; 93005; 93306; 97139; 99284; J0171; J0690; J1650; J1885; J2270; J2405; J2795; J3010; J3370; J7030; U0002

== ENCOUNTER 2022-03-30 15:04 | Emergency (ER) | payer MEDICARE ==
[~2022-03-30] VITALS: Ht 320 cm; Wt 46.3 kg
[~2022-03-30 15:04] MED LIST changes: +LEXAPRO10 MG PO; +SINEMET 25-1001 EACH PO; +SPIRONOLACTONE25 MG PO
[2022-03-30 16:13] LABS: BASOPHILS # (AUTO) 0.1 (0.0-0.1); BASOPHILS % 0.7 % (0.0-1.0); EOSINOPHILS # (AUTO) 0.3 (0.0-0.4); EOSINOPHILS % 3.3 % (0.0-6.0); HEMATOCRIT 40.7 % (34.2-44.1); HEMOGLOBIN 12.6 g/dL (12.0-16.0); LYMPHOCYTES # (AUTO) 2.3 (1.0-3.2); LYMPHOCYTES % 30.4 % (18.0-39.1); MEAN CORPUSCULAR HEMOGLOBIN 31.3 pg (28-32); MEAN CORPUSCULAR VOLUME 101.2 fL (81-99); MONOCYTES # (AUTO) 0.8 (0.2-0.8); MONOCYTES % 10.1 % (4.4-11.3); NEUTROPHILS # (AUTO) 4.2 (2.1-6.9); NEUTROPHILS % 55.2 % (38.7-80.0); PLATELET COUNT 221 x10e3/uL (140-360); RED BLOOD COUNT 4.02 x10e6/uL (3.6-5.1); RED CELL DISTRIBUTION WIDTH 13.6 % (11.7-14.4)
[2022-03-30 16:37] LABS: ALBUMIN 3.5 g/dL (3.5-5.0); ALBUMIN/GLOBULIN RATIO 0.9 (0.8-2.0); ANION GAP 16.4 mmol/L (8-16); CALCIUM 9.1 mg/dL (8.4-10.2); CREATININE, SERUM 0.83 mg/dL (0.57-1.11); POTASSIUM 4.4 mmol/L (3.5-5.1)
[2022-03-30 16:43] LABS: CREATINE KINASE MB 0.4 ng/mL (0-5.0)
[2022-03-30] MEDS ORDERED: BENZONATATE100 MG PO (17:02)
[2022-03-30 17:16] VITALS: BP 100/74
== END 2022-03-30 18:55 | disposition home or self-care (01) ==
LOC: ER 15:23
DX: R05.9 Cough, unspecified (principal); J06.9 Acute upper respiratory infection, unspecified; I50.9 Heart failure, unspecified; G20 Parkinson's disease; Z20.822 Contact with and (suspected) exposure to COVID-19; R94.31 Abnormal electrocardiogram [ECG] [EKG]
CPT/HCPCS: 36415; 71045; 80053; 82550; 82553; 84484; 85025; 93005; 99284; U0002